=== PATIENT | female | born 1940 | race Caucasian/White ===

== ENCOUNTER 2019-09-13 02:08 | Inpatient (IN) ==
[2019-09-13] MEDS ORDERED: SODIUM CHLORIDE 0.9% 1,000 ML IV STA ×3 (02:23→05:26)
[2019-09-13 02:34] LABS: Basophils % 0.4 % (0.0-0.8); Eosinophils # 0.4 10*3/uL (0.0-0.87); Eosinophils % 4.4 % (0.00-10.9); Hemoglobin 7.8 GM/DL (12.0-16.0); Immature Granulocytes % 0.6 %; Immature Granulocytes Absolute 0.05 #; Lymphocytes # 3.2 10*3/uL (1.4-4.0); Lymphocytes % 38.4 % (21.3-54.2); Mean Corpuscular HGB Conc 28.9 GM/DL (32-36); Mean Platelet Volume 12.4 FL (9.6-12.0); Monocytes % 5.7 % (1.7-12.7); Neutrophils % 50.5 % (38.7-73.9); Platelet Count 199 T/CUMM (130-400); Red Cell Distribution Width 15.9 % (9.3-17.3); White Blood Count 8.4 T/CUMM (4-12)
[2019-09-13 02:48] LABS: Alanine Aminotransferase 16 U/L (13-56); Albumin 2.8 G/DL (3.4-5.0); Alkaline Phosphatase 82 U/L (45-117); Aspartate Amino Transferase 17 U/L (0-37); Bilirubin,Total < 0.39 MG/DL (0.2-1.0); Blood Urea Nitrogen 73 MG/DL (7-18); Calcium 8.3 MG/DL (8.5-10.1); Estimated Glom Filtration Rate 14 ML/MIN; Glucose 77 MG/DL (74-106); Total Protein 6.7 G/DL (6.4-8.3)
[2019-09-13 03:01] LABS: Apearance,Urine CLOUDY (Clear); Bacteria,Urine Many /HPF (Few); Bilirubin,Urine Negative (Negative); Blood, Urine Negative (Negative); Glucose,Urine (UA) Negative (Negative); Hyaline Casts,Urine 13 /LPF (0-3); Ketones,Urine Negative (Negative); Mucus,Urine Occasional /LPF (Occasional); Nitrite,Urine Negative (Negative); Protein,Urine Negative; RBC,Urine 9 /HPF (0-4); Renal Epithelial Cells,Urine Occasional /HPF (<1); Squamous Epithelial Cell,Urine Occasional /HPF (0-10); Transitional Epi Cells,Urine Occasional /HPF (<1); Urine Color Yellow (Yellow); Urine Specific Gravity 1.013 (1.001-1.035); Urine Urobilinogen < 2.0 EU/DL (0.2-1.0); WBC,Urine 289 /HPF (0-6)
[2019-09-13] MEDS ORDERED: LEVOFLOXACIN INJ 500 MG in PREMIX 1 EACH IV STA (03:05)
[2019-09-13] MEDS ORDERED: ONDANSETRON 4 MG/2 ML VIAL IV PRN (03:59)
[2019-09-13] MEDS ORDERED: ACETAMINOPHEN 325 MG TABLET PEG PRN (03:59)
[2019-09-13] MEDS ORDERED: SODIUM CHLORIDE 0.9% 1,000 ML IV SCH (04:00)
[2019-09-13] MEDS ORDERED: SODIUM CHLORIDE 0.9% 1,000 ML IV PRN (05:14)
[2019-09-13] MEDS: SODIUM CHLORIDE 0.45% 1,000 ML IV SCH ×3 (07:48→21:33)
[2019-09-13] MEDS: PANTOPRAZOLE 40 MG VIAL IV SCH ×3 (09:30→21:30)
[2019-09-13] MEDS ORDERED: SKIN HEALING OINT (AQUAPHOR) 50 GM TUBE TOP PRN (13:33)
[2019-09-13] MEDS: MELATONIN 3 MG TABLET PO SCH (21:33)
[2019-09-13] MEDS: traZODone 50 MG TABLET PO SCH (21:33)
[2019-09-14] MEDS: SODIUM CHLORIDE 0.45% 1,000 ML IV SCH ×4 (03:00→21:23)
[2019-09-14 05:42] LABS: Albumin 2.4 G/DL (3.4-5.0); Bilirubin,Total 0.4 MG/DL (0.2-1.0); Calcium 8.2 MG/DL (8.5-10.1); Osmolality,Calculated 304.1 MOS/KG (273-304); Total Protein 5.8 G/DL (6.4-8.3)
[2019-09-14] MEDS: LEVOTHYROXINE 150 MCG TABLET PO SCH (07:39)
[2019-09-14] MEDS ORDERED: INFLUENZA VIRUS VACCINE 0.5 ML SYRINGE IM ONE (09:00)
[2019-09-14] MEDS: CETIRIZINE 10 MG TABLET PO SCH (09:12)
[2019-09-14] MEDS: THEOPHYLLINE ER (24 HR) 400 MG CAPSULE PO SCH (09:12)
[2019-09-14] MEDS: SERTRALINE 50 MG TABLET PO SCH (09:13)
[2019-09-14] MEDS: PANTOPRAZOLE 40 MG VIAL IV SCH ×2 (09:13→21:28)
[2019-09-14] MEDS: MEMANTINE 10 MG TABLET PO SCH (09:13)
[2019-09-14] MEDS: MULTIVITAMIN (CENTRUM) TABLET PO SCH (09:13)
[2019-09-14] MEDS: ATORVASTATIN 10 MG TABLET PO SCH (09:13)
[2019-09-14 11:30] LABS: Hematocrit 32.6 VOL% (35.7-47.0); Hemoglobin 9.6 GM/DL (12.0-16.0)
[2019-09-14 19:57] LABS: Hematocrit 30.4 VOL% (35.7-47.0); Hemoglobin 9.2 GM/DL (12.0-16.0)
[2019-09-14] MEDS: traZODone 50 MG TABLET PO SCH (21:28)
[2019-09-14] MEDS: MELATONIN 3 MG TABLET PO SCH (21:28)
[2019-09-15] MEDS ORDERED: LEVOFLOXACIN INJ 500 MG in PREMIX 1 EACH IV SCH (04:00)
[2019-09-15] MEDS: LEVOTHYROXINE 150 MCG TABLET PO SCH (05:31)
[2019-09-15] MEDS: SODIUM CHLORIDE 0.45% 1,000 ML IV SCH ×2 (05:32→13:40)
[2019-09-15 06:33] LABS: Basophils % 0.6 % (0.0-0.8); Eosinophils # 0.2 10*3/uL (0.0-0.87); Eosinophils % 3.9 % (0.00-10.9); Hematocrit 30.4 VOL% (35.7-47.0); Hemoglobin 9.2 GM/DL (12.0-16.0); Immature Granulocytes % 0.8 %; Immature Granulocytes Absolute 0.04 #; Lymphocytes # 1.8 10*3/uL (1.4-4.0); Mean Corpuscular HGB Conc 30.3 GM/DL (32-36); Mean Platelet Volume 12.2 FL (9.6-12.0); Monocytes % 7.1 % (1.7-12.7); Neutrophils % 53.6 % (38.7-73.9); Platelet Count 128 T/CUMM (130-400); Red Cell Distribution Width 15.6 % (9.3-17.3); White Blood Count 5.3 T/CUMM (4-12)
[2019-09-15 07:09] LABS: Osmolality,Calculated 287.1 MOS/KG (273-304)
[2019-09-15] MEDS: THEOPHYLLINE ER (24 HR) 400 MG CAPSULE PO SCH (09:55)
[2019-09-15] MEDS: CETIRIZINE 10 MG TABLET PO SCH (09:55)
[2019-09-15] MEDS: MEMANTINE 10 MG TABLET PO SCH (09:55)
[2019-09-15] MEDS: MULTIVITAMIN (CENTRUM) TABLET PO SCH (09:55)
[2019-09-15] MEDS: SERTRALINE 50 MG TABLET PO SCH (09:55)
[2019-09-15] MEDS: PANTOPRAZOLE 40 MG VIAL IV SCH ×2 (09:55→20:32)
[2019-09-15] MEDS: ATORVASTATIN 10 MG TABLET PO SCH (09:55)
[2019-09-15] MEDS: traZODone 50 MG TABLET PO SCH (20:33)
[2019-09-15] MEDS: MELATONIN 3 MG TABLET PO SCH (20:33)
[2019-09-16] MEDS: SODIUM CHLORIDE 0.45% 1,000 ML IV SCH ×3 (04:18→21:45)
[2019-09-16 05:01] LABS: Basophils % 0.5 % (0.0-0.8); Eosinophils # 0.2 10*3/uL (0.0-0.87); Hematocrit 27.8 VOL% (35.7-47.0); Hemoglobin 8.5 GM/DL (12.0-16.0); Immature Granulocytes % 0.9 %; Immature Granulocytes Absolute 0.05 #; Lymphocytes # 1.6 10*3/uL (1.4-4.0); Lymphocytes % 28.8 % (21.3-54.2); Mean Corpuscular HGB Conc 30.6 GM/DL (32-36); Mean Corpuscular Volume 91.1 FL (87-102); Mean Platelet Volume 12.6 FL (9.6-12.0); Monocytes % 7.6 % (1.7-12.7); Neutrophils % 59.2 % (38.7-73.9); Platelet Count 132 T/CUMM (130-400); Red Blood Count 3.05 MC/CUMM (3.8-5.5); White Blood Count 5.7 T/CUMM (4-12)
[2019-09-16 05:19] LABS: Calcium 7.8 MG/DL (8.5-10.1); Osmolality,Calculated 284.3 MOS/KG (273-304)
[2019-09-16] MEDS: LEVOTHYROXINE 150 MCG TABLET PO SCH (06:14)
[2019-09-16] MEDS: SERTRALINE 50 MG TABLET PO SCH (08:46)
[2019-09-16] MEDS: CETIRIZINE 10 MG TABLET PO SCH (08:46)
[2019-09-16] MEDS: MEMANTINE 10 MG TABLET PO SCH (08:46)
[2019-09-16] MEDS: MULTIVITAMIN (CENTRUM) TABLET PO SCH (08:46)
[2019-09-16] MEDS: ATORVASTATIN 10 MG TABLET PO SCH (08:46)
[2019-09-16] MEDS: THEOPHYLLINE ER (24 HR) 400 MG CAPSULE PO SCH (08:47)
[2019-09-16] MEDS: PANTOPRAZOLE 40 MG VIAL IV SCH ×2 (08:47→21:28)
[2019-09-16] MEDS ORDERED: AZTREONAM 1,000 MG in SYRINGE 1 EACH IV ONE (14:00)
[2019-09-16] MEDS ORDERED: VANCOMYCIN INJ 750 MG in SODIUM CHLORIDE 0.9% 250 ML IV SCH (14:00)
[2019-09-16] MEDS: MELATONIN 3 MG TABLET PO SCH (21:27)
[2019-09-16] MEDS: traZODone 50 MG TABLET PO SCH (21:27)
[2019-09-17] MEDS: AZTREONAM 500 MG in SYRINGE 1 EACH IV SCH ×2 (01:08→06:24)
[2019-09-17] MEDS: LEVOTHYROXINE 150 MCG TABLET PO SCH (06:23)
[2019-09-17] MEDS: SODIUM CHLORIDE 0.45% 1,000 ML IV SCH (09:48)
[2019-09-17] MEDS: PANTOPRAZOLE 40 MG VIAL IV SCH (09:49)
[2019-09-17] MEDS: MULTIVITAMIN (CENTRUM) TABLET PO SCH (09:49)
[2019-09-17] MEDS: MEMANTINE 10 MG TABLET PO SCH (09:49)
[2019-09-17] MEDS: THEOPHYLLINE ER (24 HR) 400 MG CAPSULE PO SCH (09:49)
[2019-09-17] MEDS: SERTRALINE 50 MG TABLET PO SCH (09:49)
[2019-09-17] MEDS: ATORVASTATIN 10 MG TABLET PO SCH (09:49)
[2019-09-17] MEDS: CETIRIZINE 10 MG TABLET PO SCH (09:49)
[2019-09-17 12:07] VITALS: BP 141/71
== END 2019-09-17 13:24 | DRG 690 ==
LOC: EDUNIT# → EDBD → N.ED 02:08 → N.EDINP 04:03 → SUATTDRO 04:03 → N.5E 05:00 → N.CC 06:22 → N.2E 15:42
PROVIDERS: ADMIT Hospitalist; ATTEND Family Medicine